=== PATIENT | female | born 1995 | race Caucasian/White ===

== ENCOUNTER → 2018-08-07 | Outpatient (CLI) | payer BC ==
[~2018-08-07] MED LIST: GADOBUTROL 10 MMOL/10 ML VIAL INT ART ONE; IOHEXOL 300 MG/ML 50 ML VIAL. IJ ONE; LIDOCAINE WITH 8.4% SOD BICARB 3 ML DISP.SYRIN. INJ ONE
--- NOTE | 2018-08-07 15:14 | RAD ---
MR arthrogram of the left shoulder Indication: Left shoulder pain for 4 months. No known injury. History of labral tear. Technique: Intra-articular contrast injected into the glenohumeral joint and is reported separately. Routine 4 plane sequences were obtained, including ABER positioning. FINDINGS: Artifact: No significant image degradation. Acromioclavicular joint: Intact. Rotator cuff: * Supraspinatus-infraspinatus tendon: Intact * Subscapularis tendon: Intact * Muscle bulk: Within normal limits * Subacromial subdeltoid bursa: No significant fluid or contrast accumulation. Articular cartilage: No acute cartilage defect or advanced DJD. Labrum: The posterolateral inferior labrum is irregular, may be due to prior surgical intervention. No evidence of labral detachment. There is a small suture anchor at the posteroinferior glenoid. Biceps tendon: Intact Bones: No lesion or acute fracture. Soft tissue: No acute findings. Impression: Irregularity the posteroinferior labrum may be postsurgical or degenerative. No evidence of labral detachment or separation. Electronically signed by: Scott Pierre MD (08/07/2018 3:11 PM) [id number]
--- NOTE | 2018-08-07 16:39 | RAD ---
Indication: Left shoulder pain, and limited range of motion for 2 months. Patient presents for pre-MRI arthrogram. TECHNIQUE: After explaining risks and benefits of the procedure, informed consent was obtained. The skin was prepped and draped using usual sterile procedure. Under fluoroscopy guidance 22-gauge spinal needle was introduced in the joint space. The tip of the needle was performed using IV contrast. 15 mL of gadolinium based contrast mixed with 2.5 mL of lidocaine and 2.5 mL of iodinated contrast was injected into the joint space. The needle was drawn and the skin was cleaned with alcohol. Bandage was placed. Patient left the fluoroscopy suite in stable condition for MRI. Findings/ impression: Uncomplicated pre-MRI left shoulder arthrogram. Electronically signed by: Inder Blue DO (08/07/2018 4:36 PM) [facility]
== END | disposition home or self-care (01) ==
LOC: RAD 13:09
DX: M25.512 Pain in left shoulder (principal)
CPT/HCPCS: 73040; 73222; A9585; Q9967